=== PATIENT | female | born 1980 | race Caucasian/White ===

== ENCOUNTER 2021-03-27 14:33 | Emergency (ER) | payer BC ==
--- OUTSIDE RECORDS SUMMARY | 2021-03-27 14:36 | XMS REPORT | Continuity of Care Document ---
:1980 Author Organization [facility] t Address [address] [place] [address] [address]. [address] [place] [address] Care Team Providers Name Role Phone Cristina Attending Clinician [phone] Problems This patient has no known problems. Allergies, Adverse Reactions, Alerts This patient has no known allergies or adverse reactions. Medications This patient has no known medications. Procedures This patient has no known procedures. Encounters Start End Encounter Admission Attending Care Care Encounter Source Date/Time Date/Time Type Type Clinicians Facility Department ID 2021-03-27 2021-03-27 Outpatient TORITO [facility] [id number] 00:00:00 00:00:00 Alicia [id number] Results This patient has no known results.
[2021-03-27 15:27] LABS: Absolute Lymphocytes (CBC) 1.3 K/uL (0.7-4.9); Basophils % 0.3 % (0-1.3); Hematocrit 37.7 % (36.0-45.0); Lymphocytes % 31.6 % (15.3-44.8); MPV 6.8 fL (7.6-11.3); RBC Red Blood Cell Count 4.33 M/uL (3.86-4.86)
[2021-03-27 15:38] LABS: Potassium 3.5 mmol/L (3.5-5.1)
[2021-03-27] MEDS ORDERED: NA CHLORIDE 0.9% 1,000 ML ONE (15:39)
[2021-03-27] MEDS ORDERED: CASIRIVIMAB/IMDEVIMAB 10 ML VIAL ONE (15:39)
[2021-03-27] MEDS ORDERED: NA CHLORIDE 0.9% 250 ML ONE (15:39)
--- NOTE | 2021-03-27 17:14 | ER ---
Nurse's Notes [facility] Name: Gardenia Patino Age: 40 yrs Sex: Female : 1980 Arrival Date: 03/27/2021 Time: 14:36 Bed 19 Private MD: Diagnosis: SARS-associated coronavirus as the cause of diseases classified elsewhere Presentation: 03/27 14:45 Chief complaint: Patient states: COVID +, ANTIBODY INFUSION. Coronavirus screen: Client bp reports previous positive COVID test result. Ebola Screen: No symptoms or risks identified at this time. Initial Sepsis Screen: Does the patient meet any 2 criteria? No. Patient's initial sepsis screen is negative. Does the patient have a suspected source of infection? No. Patient's initial sepsis screen is negative. Risk Assessment: Do you want to hurt yourself or someone else? Patient reports no desire to harm self or others. Onset of symptoms is unknown. 14:45 Method Of Arrival: Ambulatory bp 14:45 Acuity: SHELL 3 bp Triage Assessment: 15:20 General: Appears distressed, uncomfortable, Behavior is cooperative, appropriate for bp age, anxious. Pain: Denies pain. EENT: No deficits noted. Neuro: No deficits noted. Cardiovascular: No deficits noted. Respiratory: No deficits noted. GI: No signs and/or symptoms were reported involving the gastrointestinal system. : No signs and/or symptoms were reported regarding the genitourinary system. Derm: No deficits noted. Musculoskeletal: No deficits noted. Historical: - Allergies: 15:20 No Known Allergies; bp - Home Meds: 15:20 None [Active]; bp - PMHx: 15:20 None; bp - Immunization history:: Adult Immunizations unknown. - Social history:: Smoking status: Patient denies any tobacco usage or history of. Screenin:45 Abuse screen: Denies threats or abuse. Denies injuries from another. Nutritional bp screening: No deficits noted. Tuberculosis screening: No symptoms or risk factors identified. Fall Risk None identified. Assessment: 14:45 General: SEE TRIAGE NOTE. bp 15:45 Reassessment: CONSENT FOR REGEN-COV SIGNED/WITNESSED. REGEN-COV INFUSION STARTED. bp 17:15 Reassessment: REGEN-COV COMPLETE. PT ON OBS. bp 18:28 Reassessment: PT D/C HOME AMBULATORY, DX WITH SARS-COVID. bp Vital Signs: 14:48 BP 113 / 92; Pulse 126; Resp 20; Temp 97.5; Pulse Ox 98% on R/A; Weight 92.99 kg; em1 Height 5 ft. 9 in. (175.26 cm); Pain 0/10; 15:45 BP 111 / 84; Pulse 96; Resp 16; Pulse Ox 98% ; bp 18:27 BP 114 / 76; Pulse 92; Resp 16; Pulse Ox 97% ; bp 14:48 Body Mass Index 30.27 (92.99 kg, 175.26 cm) em1 ED Course: 14:36 Patient arrived in ED. as 14:38 Carlos A Pendleton PA is PHCP. jr8 14:38 Pro Kramer MD is Attending Physician. jr8 14:45 Patient has correct armband on for positive identification. Bed in low position. Call bp light in reach. Side rails up X2. 14:58 Geraldo Gonzalez, RN is Primary Nurse. bp 15:10 Inserted saline lock: 20 gauge in left antecubital area, using aseptic technique. bp 15:19 Triage completed. bp 15:20 Arm band placed on. bp 18:28 No provider procedures requiring assistance completed. IV discontinued, intact, bp bleeding controlled, No redness/swelling at site. Pressure dressing applied. Administered Medications: 15:45 Drug: REGEN-COV Dose Pack 120 mg/mL-120 mg/mL (EUA) 600 mg Route: IV; Rate: calculated bp rate; Site: left antecubital; 17:15 Follow up: IV Status: Completed infusion; IV Intake: 250ml bp 15:45 Drug: NS 0.9% 1000 ml Route: IV; Rate: 1000 ml; Site: left antecubital; bp 18:29 Follow up: IV Status: Completed infusion; IV Intake: 1000ml bp Intake: 17:15 IV: 250ml; Total: 250ml. bp 18:29 IV: 1000ml; Total: 1250ml. bp Outcome: 17:13 Discharge ordered by . jr8 18:28 Discharged to home ambulatory. bp 18:28 Condition: stable 18:28 Discharge instructions given to patient, Instructed on discharge instructions, follow up and referral plans. 18:29 Patient left the ED. bp Signatures: Marylu Walker Eric em1 Carlos A Pendleton PA PA jr8 Geraldo Gonzalez, RN RN bp
--- NOTE | 2021-03-27 17:14 | EDPHYS ---
Physician Documentation [facility] Name: Gardenia Patino Age: 40 yrs Sex: Female : 1980 Arrival Date: 03/27/2021 Time: 14:36 Bed 19 Private MD: ED Physician Pro Kramer HPI: 03/27 16:24 This 40 yrs old Female presents to ER via Ambulatory with complaints of jr8 covid+, antibody infusion. 16:24 Patient stated that she was diagnosed about 5 days ago with coronavirus. Patient stated jr8 that she has had increased congestion with cough. Had talked to her PCP who referred her to the emergency room for monoclonal antibody therapy if possible. Patient has been is hemodynamically stable here other than having mild tachycardia.. The patient has not experienced similar symptoms in the past. The patient has been recently seen by a physician:. Historical: - Allergies: 15:20 No Known Allergies; bp - Home Meds: 15:20 None [Active]; bp - PMHx: 15:20 None; bp - Immunization history:: Adult Immunizations unknown. - Social history:: Smoking status: Patient denies any tobacco usage or history of. ROS: 16:24 Cardiovascular: Negative for chest pain, palpitations, and edema, Abdomen/GI: Negative jr8 for abdominal pain, nausea, vomiting, diarrhea, and constipation, Back: Negative for injury and pain, MS/Extremity: Negative for injury and deformity, Skin: Negative for injury, rash, and discoloration, Neuro: Negative for headache, weakness, numbness, tingling, and seizure. 16:24 ENT: Positive for sinus congestion. 16:24 Respiratory: Positive for cough. Exam: 16:24 Constitutional: This is a well developed, well nourished patient who is awake, alert, jr8 and in no acute distress. ENT: Nares patent. No nasal discharge, no septal abnormalities noted. Tympanic membranes are normal and external auditory canals are clear. Oropharynx with no redness, swelling, or masses, exudates, or evidence of obstruction, uvula midline. Mucous membranes moist. Neck: Trachea midline, no thyromegaly or masses palpated, and no cervical lymphadenopathy. Supple, full range of motion without nuchal rigidity, or vertebral point tenderness. No Meningismus. Cardiovascular: Tachycardia with a normal S1 and S2. No gallops, murmurs, or rubs. Normal PMI, no JVD. No pulse deficits. Respiratory: Lungs have equal breath sounds bilaterally, clear to auscultation and percussion. No rales, rhonchi or wheezes noted. No increased work of breathing, no retractions or nasal flaring. Abdomen/GI: Soft, non-tender, with normal bowel sounds. No distension or tympany. No guarding or rebound. No evidence of tenderness throughout. Back: No spinal tenderness. No costovertebral tenderness. Full range of motion. Skin: Warm, dry with normal turgor. Normal color with no rashes, no lesions, and no evidence of cellulitis. MS/ Extremity: Pulses equal, no cyanosis. Neurovascular intact. Full, normal range of motion. Neuro: Awake and alert, GCS 15, oriented to person, place, time, and situation. Cranial nerves II-XII grossly intact. Motor strength 5/5 in all extremities. Sensory grossly intact. Vital Signs: 14:48 BP 113 / 92; Pulse 126; Resp 20; Temp 97.5; Pulse Ox 98% on R/A; Weight 92.99 kg; em1 Height 5 ft. 9 in. (175.26 cm); Pain 0/10; 15:45 BP 111 / 84; Pulse 96; Resp 16; Pulse Ox 98% ; bp 18:27 BP 114 / 76; Pulse 92; Resp 16; Pulse Ox 97% ; bp 14:48 Body Mass Index 30.27 (92.99 kg, 175.26 cm) em1 MDM: 14:48 Patient medically screened. jr8 16:26 Data reviewed: vital signs, nurses notes, lab test result(s), and as a result, I will jr8 discharge patient. Data interpreted: Pulse oximetry: on room air is 98 %. Interpretation: normal. Counseling: I had a detailed discussion with the patient and/or guardian regarding: the historical points, exam findings, and any diagnostic results supporting the discharge/admit diagnosis, lab results, the need for outpatient follow up, a family practitioner, to return to the emergency department if symptoms worsen or persist or if there are any questions or concerns that arise at home. 17:13 ED course: Patient doing well post infusion. Hemodynamically stable. No adverse effects jr8 noted. Will have patient follow-up with primary care physician. Knows to come back if she were to feel worse at any point time and to continue monitoring respiratory status.. 03/27 14:57 Order name: CBC with Diff; Complete Time: 16:04 jr8 03/27 14:57 Order name: Basic Metabolic Panel; Complete Time: 16:04 jr8 03/27 14:57 Order name: IV; Complete Time: 15:17 jr8 Administered Medications: 15:45 Drug: REGEN-COV Dose Pack 120 mg/mL-120 mg/mL (EUA) 600 mg Route: IV; Rate: calculated bp rate; Site: left antecubital; 17:15 Follow up: IV Status: Completed infusion; IV Intake: 250ml bp 15:45 Drug: NS 0.9% 1000 ml Route: IV; Rate: 1000 ml; Site: left antecubital; bp 18:29 Follow up: IV Status: Completed infusion; IV Intake: 1000ml bp Disposition: 18:40 Co-signature as Attending Physician, Pro Kramer MD. rn 18:40 I agree with the assessment and plan of care. Attestation: The patient's history, exam rn findings, diagnostics, and a summary of any interventions or procedures was reviewed in detail with Carlos A FOSTER. Disposition Summary: 03/27/21 17:13 Discharge Ordered Location: Home jr8 Problem: new jr8 Symptoms: have improved jr8 Condition: Stable jr8 Diagnosis - SARS-associated coronavirus as the cause of diseases classified elsewhere jr8 Followup: jr8 - With: Private Physician - When: 5 - 6 days - Reason: Recheck today's complaints, Continuance of care, Re-evaluation by your physician Discharge Instructions: - Discharge Summary Sheet jr8 - COVID-19 jr8 - 10 Things You Can Do to Manage Your COVID-19 Symptoms at Home - CDC jr8 - COVID-19: Quarantine vs. Isolation - CDC jr8 Forms: - Medication Reconciliation Form jr8 - Thank You Letter jr8 - Antibiotic Education jr8 - Prescription Opioid Use jr8 Signatures: Dispatcher [employer] EDPro Mejia MD MD rn Roszak, Josh, PA PA jr8 Geraldo Gonzalez, RN RN bp
[2021-03-27 18:35] VITALS: TEMP 97.5
[2021-03-27 18:38] VITALS: BP 114/76; O2SAT 97
== END 2021-03-27 18:29 | disposition home or self-care (01) ==
LOC: ER 14:33
DX: U07.1 COVID-19 (principal)
CPT/HCPCS: 96365; 96361; 85025; 80048; 36415; 99283; J7050; J7030

== ENCOUNTER 2024-08-21 12:14 | Emergency (ER) | payer BC ==
[2024-08-21] MEDS ORDERED: MORPHINE 2 MG/ML SYR ONE ×2 (12:51→14:20)
[2024-08-21] MEDS ORDERED: ONDANSETRON 4 MG/2 ML VIAL ONE (12:51)
[2024-08-21] MEDS ORDERED: FAMOTIDINE 20 MG/2 ML VIAL IV ONE (12:52)
[2024-08-21] MEDS ORDERED: NA CHLORIDE 0.9% 1,000 ML ONE (12:52)
[2024-08-21 13:15] LABS: Specific Gravity 1.009 (1.005-1.030); Urine Bilirubin NEGATIVE (Negative); Urine Blood Negative (Negative); Urine Clarity Clear (Clear); Urine Color Light-Yellow (Yellow); Urine Glucose NEGATIVE (Negative); Urine Ketones NEGATIVE (Negative); Urine Microscopic Reflex YN NO UMIC; Urine Nitrite NEGATIVE (Negative); Urine Protein NEGATIVE (Negative); Urine Urobilinogen Normal (Normal)
[2024-08-21 13:18] LABS: Specific Gravity 1.009 (1.005-1.030)
[2024-08-21 13:28] LABS: Albumin/Globulin Ratio 1.1 (1.1-1.8); Anion Gap 7.5 mEq/L (5.0-15.0); Bilirubin Total 0.6 mg/dL (0.2-1.0); Globulin 3.7 g/dL (2.3-3.5); Potassium 3.5 mEq/L (3.5-5.1); Protein, Total 7.7 g/dL (6.4-8.2)
[2024-08-21 13:33] LABS: Absolute Lymphocytes (CBC) 1.5 K/uL (0.7-4.9); Absolute Monocytes 0.7 K/uL (0.1-1.3); Absolute Neutrophil 8.2 K/uL (1.8-8.0); Basophils % 0.3 % (0-1.3); Eosinophils % 0.2 % (0-4.4); Hematocrit 35.7 % (36.0-45.0); Hemoglobin 12.9 g/dL (12.0-15.0); Lymphocytes % 14.5 % (15.3-44.8); MCH 31.6 pg (27.0-35.0); MCHC 36.2 g/dL (32.0-36.0); MCV 87.3 fL (80-100); MPV 7.1 fL (7.6-11.3); Monocytes % 6.4 % (3.3-12.3); Neutrophils % 78.6 % (41.7-73.7); Platelets 262 thou/uL (152-406)
--- NOTE | 2024-08-21 13:36 | RAD REPORT ---
Abdomen Exam Limited: 08/21/2024 1:29 PM CLINICAL HISTORY: ABD PAIN STUDY: Limited right upper quadrant ultrasound of abdomen. COMPARISON: None. FINDINGS: Liver: Limited evaluation but grossly unremarkable. Bile ducts: No intrahepatic or extrahepatic biliary ductal dilatation. Common bile duct measures 4 mm. Gallbladder: Within normal limits. The gallbladder is contracted. IMPRESSION: Unremarkable exam.
--- NOTE | 2024-08-21 13:54 | RAD REPORT ---
EXAMINATION: CT ABDOMEN AND PELVIS WITH CONTRAST CLINICAL INDICATION: Female, 43 years old.ABD PAIN TECHNIQUE: CT abdomen and pelvis was performed, after the administration of IV contrast, as [facility]. Axial, sagittal and coronal reconstructions were obtained. One or more of the following dose reduction techniques were used: Automated exposure control, adjustment of the mA and/o r kV according to patient size, and/or iterative reconstruction. Unless otherwise specified, incidental findings do not require dedicated imaging follow-up. [id number]. COMPARISON: 05/22/2022 FINDINGS: LOWER CHEST: No acute process identified.No significant pericardial effusion. UPPER GI: No significant abnormality. LIVER: Hepatic steatosis, but otherwise unremarkable. GALLBLADDER/BILE DUCTS: No biliary ductal dilatation.? PANCREAS: No mass, ductal dilation, or suzie-pancreatic fluid. SPLEEN: Unremarkable. ADRENALS: Left adrenal nodule measuring 1.4 cm, previously 1.2 cm in 2021. The stability is reassurin g for a benign process. Imaging follow-up is required. KIDNEYS AND URETERS: No hydronephrosis.No suspicious renal mass. ABDOMINAL AORTA AND OTHER VESSELS: Normal caliber aorta and IVC. PERITONEUM: Trace pelvic free fluid. LYMPH NODES: No pathologic lymphadenopathy. ABDOMINAL WALL: Unremarkable SMALL BOWEL/COLON: Small bowel has normal course and caliber. No colonic wall thickening or pericolon ic inflammatory changes.Normal appendix. URINARY BLADDER: Trace bladder gas. Mild bladder wall stranding. REPRODUCTIVE ORGANS: No pathologic process. MUSCULOSKELETAL: No acute or suspicious osseous abnormality. ADDITIONAL FINDINGS: None. IMPRESSION: Possible cystitis. No other acute findings identified. Normal appendix.
--- NOTE | 2024-08-21 14:07 | EDPHYS ---
Physician Documentation [facility] Name: Gardenia Patino Age: 43 yrs Sex: Female : 1980 Arrival Date: 08/21/2024 Time: 12:14 Bed 4 Private MD: SUNNY Physician Buck Sterling HPI: 08/21 12:47 This 43 yrs old Female presents to ER via Ambulatory with complaints of audrey Abdominal Pain, Nausea. 12:47 The patient presents to the emergency department with nausea, abdominal pain, of the audrey right upper quadrant and right lower quadrant. Onset: The symptoms/episode began/occurred 1 day(s) ago. Possible causes: unknown. The symptoms are aggravated by nothing. The symptoms are alleviated by nothing. Associated signs and symptoms: The patient has no apparent associated signs or symptoms. Severity of symptoms: At their worst the symptoms were. The patient has not experienced similar symptoms in the past. 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 - Infectious Disease History:: Denies. - Social history:: Smoking status: Patient denies any tobacco usage or history of. Patient/guardian denies using alcohol, street drugs. ROS: 12:48 Constitutional: Negative for fever, chills, and weight loss, Eyes: Negative for injury, audrey pain, redness, and discharge, ENT: Negative for injury, pain, and discharge, Neck: Negative for injury, pain, and swelling, Cardiovascular: Negative for chest pain, palpitations, and edema, Respiratory: Negative for shortness of breath, cough, wheezing, and pleuritic chest pain, Back: Negative for injury and pain, : Negative for injury, bleeding, discharge, and swelling, MS/Extremity: Negative for injury and deformity, Skin: Negative for injury, rash, and discoloration, Neuro: Negative for headache, weakness, numbness, tingling, and seizure, Psych: Negative for depression, anxiety, suicide ideation, homicidal ideation, and hallucinations, Allergy/Immunology: Negative for hives, rash, and allergies, Endocrine: Negative for neck swelling, polydipsia, polyuria, polyphagia, and marked weight changes, Hematologic/Lymphatic: Negative for swollen nodes, abnormal bleeding, and unusual bruising, 12:48 Abdomen/GI: Positive for abdominal pain, of the posterior aspect of right lateral abdomen, anterior aspect of right lateral abdomen, right upper quadrant and right lower quadrant, Exam: 12:48 Constitutional: This is a well developed, well nourished patient who is awake, alert, audrey and in no acute distress. Head/Face: Normocephalic, atraumatic. Eyes: Pupils equal round and reactive to light, extra-ocular motions intact. Lids and lashes normal. Conjunctiva and sclera are non-icteric and not injected. Cornea within normal limits. Periorbital areas with no swelling, redness, or edema. ENT: Nares patent. No nasal discharge, no septal abnormalities noted. Tympanic membranes are normal and external auditory canals are clear. Oropharynx with no redness, swelling, or masses, exudates, or evidence of obstruction, uvula midline. Mucous membranes moist. Neck: Trachea midline, no thyromegaly or masses palpated, and no cervical lymphadenopathy. Supple, full range of motion without nuchal rigidity, or vertebral point tenderness. No Meningismus. Chest/axilla: Normal chest wall appearance and motion. Nontender with no deformity. No lesions are appreciated. Cardiovascular: Regular rate and rhythm with a normal S1 and S2. No gallops, murmurs, or rubs. Normal PMI, no JVD. No pulse deficits. Respiratory: Lungs have equal breath sounds bilaterally, clear to auscultation and percussion. No rales, rhonchi or wheezes noted. No increased work of breathing, no retractions or nasal flaring. Back: No spinal tenderness. No costovertebral tenderness. Full range of motion. Skin: Warm, dry with normal turgor. Normal color with no rashes, no lesions, and no evidence of cellulitis. MS/ Extremity: Pulses equal, no cyanosis. Neurovascular intact. Full, normal range of motion., bilateral aka Neuro: Awake and alert, GCS 15, oriented to person, place, time, and situation. Cranial nerves II-XII grossly intact. Motor strength 5/5 in all extremities. Sensory grossly intact. Cerebellar exam normal. Normal gait. Psych: Awake, alert, with orientation to person, place and time. Behavior, mood, and affect are within normal limits. 12:48 Abdomen/GI: Inspection: distension, that is mild, Bowel sounds: normal, Palpation: moderate abdominal tenderness, in the anterior aspect of right lateral abdomen, right upper quadrant and right lower quadrant, Liver: no appreciated palpable abnormalities, Hernia: not appreciated, Vital Signs: 12:35 BP 121 / 85; Pulse 91; Resp 15; Temp 98.2(O); Pulse Ox 100% ; Weight 85.73 kg; Height 5 cm10 ft. 9 in. ; Pain 8/10; 13:07 BP 112 / 80; Pulse 81; Resp 16; Pulse Ox 99% on R/A; hb 12:35 Body Mass Index 27.91 (85.73 kg, 175.26 cm) cm10 12:35 Pain Scale: Adult cm10 MDM: 12:18 Medical Screening Exam initiated audrey 12:50 Differential diagnosis: Nonspecific abd pain, gastritis, cholecystitis, pancreatitis, audrey viral gastroenteritis, gastroenteritis, diverticulitis, gastritis. Data reviewed: vital signs, nurses notes, lab test result(s), CBC, electrolytes, hepatic panel, radiologic studies, CT scan, ultrasound. Consideration of Admission/Observation Escalation of care including admission/observation considered. I considered the following discharge prescriptions or medication management in the emergency department Medications were administered in the Emergency Department. See MAR. Independent interpretation of the following test(s) in the Emergency Department CT Scan: My interpretation is CT AND USG GB. Care significantly affected by the following chronic conditions: NONE. 08/21 12:22 Order name: CBC with Diff; Complete Time: 13:46 [facility] 08/21 12:22 Order name: CMP; Complete Time: 13:46 [facility] 08/21 12:22 Order name: Lipase; Complete Time: 13:46 [facility] 08/21 12:22 Order name: Test, Urine; Complete Time: 13:46 [facility] 08/21 12:22 Order name: Urinalysis w/ reflexes; Complete Time: 13:16 [facility] 08/21 14:05 Order name: Urine Culture [facility] 08/21 12:22 Order name: CT Abd/Pelvis - IV Contrast Only; Complete Time: 14:03 [facility] 08/21 12:43 Order name: US Abdomen Limited; Complete Time: 13:46 [facility] 08/21 12:22 Order name: IV Saline Lock; Complete Time: 13:06 [facility] 08/21 12:22 Order name: Labs collected and sent; Complete Time: 13:06 [facility] Administered Medications: 13:06 Drug: Famotidine IVP 20 mg IVP once; dilute with 10 mL 0.9% NaCl; give over 2 minutes hb Route: IVP; Site: left antecubital; 13:06 Drug: Ondansetron IVP 4 mg IVP once; over 2 minutes Route: IVP; Site: left antecubital; hb 13:06 Drug: NS 0.9% IV 1000 ml IV at 1 bolus Per protocol; to be given as a bolus over 60 hb minutes Route: IV; Rate: 1 bolus; Site: left antecubital; 13:06 Drug: morphine IVP or IV 2 mg IVP once over 4 mins Route: IVP; Infused Over: 4 mins; hb Site: left antecubital; 14:38 Drug: morphine IVP or IV 2 mg IVP once over 4 mins Route: IVP; Infused Over: 4 mins; hb Site: left antecubital; 14:38 Drug: Rocephin IV 1 grams IV at per protocol once; Given slow IV push per pharmacy hb instructions Route: IV; Rate: per protocol; Site: left antecubital; 14:38 Drug: LevOfloxacin PO 750 mg PO once Route: PO; hb 14:38 Drug: Phenazopyridine PO 200 mg PO once Route: PO; hb Disposition Summary: 08/21/24 14:06 Discharge Ordered Notes: Location: Home [facility] Problem: new audrey Symptoms: have improved audrey Condition: Stable audrey Diagnosis - Abdominal tenderness audrey - Acute cystitis audrey Followup: audrey - With: Private Physician - When: 2 - 3 days - Reason: Recheck today's complaints, Continuance of care, Re-evaluation by your physician Followup: audrey - With: Kenn Blanton MD - When: 2 - 3 days - Reason: Recheck today's complaints, Re-evaluation by your physician Discharge Instructions: - Discharge Summary Sheet audrey - Abdominal Pain, Adult audrey - Urinary Tract Infection, Adult audrey - Urinary Tract Infection, Adult, [id number] audrey - Abdominal Pain, Adult, [id number] audrey Forms: - Medication Reconciliation Form audrey - Antibiotic Education audrey - Prescription Opioid Use audrey - Patient Portal Instructions audrey - Leadership Thank You Letter audrey Prescriptions: - ondansetron 4 mg Oral Tablet,disintegrating - take 1 tablet ORAL route every 6-8 hours for 5 days; 20 tablet; Refills: 0, [facility] Product Selection Permitted - Pyridium 200 mg Oral Tablet - take 1 tablet ORAL route every 8 hours for 3 days; 9 tablet; Refills: 0, [facility] Product Selection Permitted - Bactrim DS 800-160 mg Oral Tablet - take 1 tablet ORAL route every 12 hours for 3 days; 6 tablet; Refills: 0, [facility] Product Selection Permitted - levofloxacin 500 mg Oral tablet - take 1 tablet ORAL route once daily for 7 days begin 08/22/24; 7 tablet; Refills: [facility] 0, Product Selection Permitted Signatures: Dispatcher [employer] Buck Rojas MD MD cha Baxter, Heather, RN RN Kari Richards RN RN cm10 Corrections: (The following items were deleted from the chart) 12:22 12:22 Abdomen Pelvis W Con+CT.RAD.BRZ ordered. EDVA EDMS
--- NOTE | 2024-08-21 14:07 | ER ---
Nurse's Notes [facility] Name: Gardenia Patino Age: 43 yrs Sex: Female : 1980 Arrival Date: 08/21/2024 Time: 12:14 Bed 4 Private MD: Diagnosis: Abdominal tenderness;Acute cystitis Presentation: 08/21 12:35 Chief complaint: Patient states: Right sided abdominal pain onset today. pt states that cm10 the pain started on her RLQ and was a cramping pain and now the pain has moved up. Pt also reports nausea. Coronavirus screen: Client denies travel out of the [place] in the last 14 days. Ebola Screen: Patient denies travel to an Ebola-affected area in the 21 days before illness onset. Initial Sepsis Screen: Does the patient meet any 2 criteria? HR > 90 bpm. Does the patient have a suspected source of infection? No. Patient's initial sepsis screen is negative. Risk Assessment: Do you want to hurt yourself or someone else? Patient reports no desire to harm self or others. Onset of symptoms was August 21, 2024. 12:35 Method Of Arrival: Ambulatory cm10 12:35 Acuity: SHELL 3 cm10 Triage Assessment: 12:36 General: Appears uncomfortable, Behavior is calm, cooperative. Pain: Complains of pain cm10 in right upper quadrant and right lower quadrant Pain does not radiate. Pain currently is 8 out of 10 on a pain scale. Quality of pain is described as crampy, pressure, squeezing. Neuro: No deficits noted. Level of Consciousness is awake, alert, obeys commands, Oriented to person, place, time, situation, Appropriate for age. Respiratory: No deficits noted. Airway is patent Respiratory effort is even, unlabored, Respiratory pattern is regular, symmetrical. GI: Reports lower abdominal pain, upper abdominal pain, cramping, nausea. 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 - Infectious Disease History:: Denies. - Social history:: Smoking status: Patient denies any tobacco usage or history of. Patient/guardian denies using alcohol, street drugs. Screenin:07 [facility] ED Fall Risk Assessment (Adult) History of falling in the last 3 months, hb including since admission No falls in past 3 months (0 pts) Confusion or Disorientation No (0 pts) Intoxicated or Sedated Yes (3 pts) Impaired Gait No (0 pts) Mobility Assist Device Used No (0 pt) Altered Elimination No (0 pt) Score/Fall Risk Level 3 or more points = High Risk Oriented to surroundings, Maintained a safe environment, Educated pt \T\ family on fall prevention, incl call for assistance when getting out of bed, Assessed \T\ reinforced patient's understanding of fall precautions. Abuse screen: Denies threats or abuse. Denies injuries from another. Nutritional screening: No deficits noted. Tuberculosis screening: No symptoms or risk factors identified. Assessment: 13:07 General: Appears in no apparent distress. uncomfortable, Behavior is calm, cooperative. hb Pain: Pain currently is 8 out of 10 on a pain scale. Neuro: Level of Consciousness is awake, alert, obeys commands, Oriented to person, place, time, situation. Cardiovascular: Patient's skin is warm and dry. Respiratory: Respiratory effort is even, unlabored, Respiratory pattern is regular, symmetrical. GI: Reports lower abdominal pain, upper abdominal pain, nausea. : No signs and/or symptoms were reported regarding the genitourinary system. EENT: No signs and/or symptoms were reported regarding the EENT system. Derm: Skin is pink, warm \T\ dry. Musculoskeletal: No signs and/or symptoms reported regarding the musculoskeletal system. Vital Signs: 12:35 BP 121 / 85; Pulse 91; Resp 15; Temp 98.2(O); Pulse Ox 100% ; Weight 85.73 kg; Height 5 cm10 ft. 9 in. ; Pain 8/10; 13:07 BP 112 / 80; Pulse 81; Resp 16; Pulse Ox 99% on R/A; hb 12:35 Body Mass Index 27.91 (85.73 kg, 175.26 cm) cm10 12:35 Pain Scale: Adult cm10 ED Course: 12:16 Patient arrived in ED. im 12:18 Buck Sterling MD is Attending Physician. audrey 12:36 Triage completed. cm10 12:47 Angie Sparrow, RN is Primary Nurse. hb 13:02 Arm band placed on right wrist. Patient placed in an exam room, on a stretcher. cm10 13:02 No provider procedures requiring assistance completed. Inserted saline lock: 20 gauge hb in left antecubital area, using aseptic technique. Blood collected. Flushed with 10 mL NS. 13:02 Initial lab(s) drawn, by me, sent to lab. Urine collected: clean catch specimen, clear. hb 13:07 Patient has correct armband on for positive identification. Bed in low position. Call hb light in reach. Provided Education on: use of call light, medications, tests, result times . 13:07 CBC with Diff Sent. hb 13:07 CMP Sent. hb 13:07 Lipase Sent. hb 13:07 Test, Urine Sent. hb 13:07 Urinalysis w/ reflexes Sent. hb 13:31 US Abdomen Limited In Process Unspecified. EDMS 13:36 CT Abd/Pelvis - IV Contrast Only In Process Unspecified. EDMS 14:06 Kenn Blanton MD is Referral Physician. audrey Administered Medications: 13:06 Drug: Famotidine IVP 20 mg IVP once; dilute with 10 mL 0.9% NaCl; give over 2 minutes hb Route: IVP; Site: left antecubital; 13:06 Drug: Ondansetron IVP 4 mg IVP once; over 2 minutes Route: IVP; Site: left antecubital; hb 13:06 Drug: NS 0.9% IV 1000 ml IV at 1 bolus Per protocol; to be given as a bolus over 60 hb minutes Route: IV; Rate: 1 bolus; Site: left antecubital; 13:06 Drug: morphine IVP or IV 2 mg IVP once over 4 mins Route: IVP; Infused Over: 4 mins; hb Site: left antecubital; 14:38 Drug: morphine IVP or IV 2 mg IVP once over 4 mins Route: IVP; Infused Over: 4 mins; hb Site: left antecubital; 14:38 Drug: Rocephin IV 1 grams IV at per protocol once; Given slow IV push per pharmacy hb instructions Route: IV; Rate: per protocol; Site: left antecubital; 14:38 Drug: LevOfloxacin PO 750 mg PO once Route: PO; hb 14:38 Drug: Phenazopyridine PO 200 mg PO once Route: PO; hb Medication: 13:07 VIS not applicable for this client. hb Outcome: 14:06 Discharge ordered by MD. ventura 16:26 Patient left the ED. hb Signatures: Dispatcher [employer] EDBuck Tirado MD MD cha Baxter, Heather, RN RN Vi Robins Clarissa, RN RN cm10
[2024-08-21] MEDS ORDERED: levoFLOXacin 750 MG TAB ONE (14:20)
[2024-08-21] MEDS ORDERED: CEFTRIAXONE 1000 MG/VIAL ONE (14:20)
[2024-08-21] MEDS ORDERED: PHENAZOPYRIDINE 100MG TAB PO ONE (14:20)
[2024-08-21 16:30] VITALS: TEMP 98.2
[2024-08-21 16:31] VITALS: BP 112/80; O2SAT 99
== END 2024-08-21 16:26 | disposition home or self-care (01) ==
LOC: ER 12:14
DX: N30.00 Acute cystitis without hematuria (principal)
CPT/HCPCS: 87088; 85025; 87086; 36415; 81025; 81003; 83690; 80053; 74177; 76705; 96375; 96374; 99284; Q9967; J2270 ×2; J2405; J7030; J0696